=== PATIENT | female | born 1965 | race Caucasian/White ===

== ENCOUNTER → 2016-10-29 08:33 | Outpatient (CLI) | payer MEDICAID ==
[2011-06-03 11:14] VITALS: BMI 29.3
== END | disposition home or self-care (01) ==
LOC: D.MRI 08:30
DX: M54.12 Radiculopathy, cervical region (principal)

== ENCOUNTER 2019-07-30 02:29 | Emergency (ER) | payer MEDICAID ==
[~2019-07-30] VITALS: Ht 157.5 cm; Wt 72.6 kg
[2019-07-30 02:34] VITALS: Ht 157.5 cm; Wt 72.6 kg
[2019-07-30] MEDS ORDERED: MOBIC7.5 MG PO (02:36)
[2019-07-30] MEDS ORDERED: LISINOPRIL10 MG (02:36)
[2019-07-30] MEDS ORDERED: SUBOXONE 2 MG-01 TAB SL (02:36)
[2019-07-30] MEDS ORDERED: BUPRENORPHIN-N1 EACH SL (02:36)
[2019-07-30] MEDS ORDERED: KLONOPIN1 MG PO (02:37)
[2019-07-30] MEDS ORDERED: ESTRACE1 MG PO (02:37)
[2019-07-30] MEDS ORDERED: CELEXA20 MG PO (02:38)
[2019-07-30] MEDS ORDERED: GABAPENTIN100 MG PO (02:38)
[2019-07-30] MEDS ORDERED: VENTOLIN HFA [SP8 GM INH (02:53)
[2019-07-30] MEDS ORDERED: LEVOFLOXACIN500 MG PO (02:53)
[2019-07-30] MEDS ORDERED: MEDROL DOSE PACK4 MG PO (02:53)
[2019-07-30 02:55] LABS: BASOPHILS 0.3 % (0-2); EOSINOPHILS 4.8 % (0-7); HEMATOCRIT 39.9 % (36.0-48.0); HEMOGLOBIN 13.6 g/dL (12-16); IMMATURE GRANULOCYTES 0.3 % (0-5); LYMPHOCYTES 49.3 % (15-50); MCH 28.9 pg (26.0-34.0); MCHC 34.1 g/dL (31.0-37.0); MCV 84.9 fL (80.0-100.0); MEAN PLATELET VOLUME 9.6 fL (7.4-10.4); MONOCYTES 8.7 % (2-11); NEUTROPHILS 36.6 % (40-80); PLATELET COUNT 225 10x3/uL (130-400); RDW 14.1 % (11.5-14.5); WBC 14.1 10x3/uL (4.8-10.8)
[2019-07-30 03:04] LABS: CALC OSMOLALITY 281 mosm/kg (275-300); CALCIUM 9.1 mg/dL (8.5-10.1); CARBON DIOXIDE 26.2 mmol/L (21.0-32.0); CHLORIDE - SERUM 104 mmol/L (98-107); CREATININE - SERUM 0.8 mg/dL (0.6-1.3); GLUCOSE 104 mg/dL (74-106); POTASSIUM - SERUM 3.6 mmol/L (3.5-5.1); SODIUM 141 mmol/L (136-145); UREA NITROGEN 14 mg/dL (7-18); eGFR NON AFRICAN AMERICAN 80 mL/min (90-120)
[2019-07-30 03:10] LABS: ALBUMIN 3.6 g/dL (3.4-5.0); ALKALINE PHOSPHATASE 141 U/L (30-120); ALT (SGPT) 44 U/L (10-68); BILIRUBIN - TOTAL 0.46 mg/dL (0.2-1.3); PROTEIN - SERUM 7.6 g/dL (6.4-8.2)
[2019-07-30 03:50] VITALS: BP 136/82
== END 2019-07-30 03:50 | disposition home or self-care (01) ==
LOC: D.ER 02:29
PROVIDERS: Emergency Medicine
DX: J44.9 Chronic obstructive pulmonary disease, unspecified (principal); J20.9 Acute bronchitis, unspecified; Z72.0 Tobacco use; I10 Essential (primary) hypertension